=== PATIENT | male | born 1955 | race Caucasian/White ===

== ENCOUNTER 2017-07-23 11:27 | Emergency (ER) | payer OTHER ==
[2015-04-20 11:20] VITALS: BMI 23.3
[~2017-07-23 11:27] MED LIST: PRINIVIL10 MG PO; TENORMIN25 MG PO
[2017-07-23 13:35] LABS: BASOPHILS 0.1 % (0-2); EOSINOPHILS 0 % (0-7); HEMATOCRIT 42.1 % (42.0-54.0); HEMOGLOBIN 14.8 g/dL (13.5-17.5); IMMATURE GRANULOCYTES 0.6 % (0-5); LYMPHOCYTES 3.9 % (15-50); MCH 30.7 pg (26.0-34.0); MCHC 35.2 g/dL (31.0-37.0); MCV 87.3 fL (80.0-100.0); MEAN PLATELET VOLUME 10.6 fL (7.4-10.4); MONOCYTES 6.7 % (2-11); NEUTROPHILS 88.7 % (40-80); PLATELET COUNT 245 10x3/uL (130-400); RBC 4.82 10x6/uL (4.20-6.10); RDW 12.2 % (11.5-14.5); WBC 19.3 10x3/uL (4.8-10.8)
[2017-07-23 13:44] LABS: ALKALINE PHOSPHATASE 98 U/L (46-116); ALT (SGPT) 23 U/L (10-68); BILIRUBIN - TOTAL 0.95 mg/dL (0.2-1.3); CALCIUM 8.5 mg/dL (8.5-10.1); CARBON DIOXIDE 28.9 mmol/L (21.0-32.0); CREATININE - SERUM 0.9 mg/dL (0.6-1.3); GLUCOSE 115 mg/dL (74-106); POTASSIUM - SERUM 4.5 mmol/L (3.5-5.1); PROTEIN - SERUM 6.9 g/dL (6.4-8.2); UREA NITROGEN 10 mg/dL (7-18); eGFR NON AFRICAN AMERICAN 90 mL/min (90-120)
[2017-07-23 13:48] LABS: CALC OSMOLALITY 241 mosm/kg (275-300)
[2017-07-23 13:49] LABS: CHLORIDE - SERUM 84 mmol/L (98-107); SODIUM 120 mmol/L (136-145)
[2017-07-23 14:05] LABS: APPEARANCE CLEAR (CLEAR); BILIRUBIN NEGATIVE (NEGATIVE); COLOR YELLOW (YELLOW); GLUCOSE NEGATIVE (NEGATIVE); KETONE NEGATIVE (NEGATIVE); NITRITE NEGATIVE (NEGATIVE); PROTEIN NEGATIVE (NEGATIVE); UROBILINOGEN NORMAL (NORMAL)
[2017-07-23 14:08] LABS: WHITE CELLS - URINE OCC /hpf (0-5)
[2017-07-23 14:09] LABS: BACTERIA FEW /hpf (NONE SEEN); EPITHELIAL CELLS OCC /hpf (0-5); MUCUS <1+ /lpf (NONE SEEN); RED CELLS - URINE 0-5 /hpf (0-5); SPERMATOZOA 0-5 /hpf (NONE SEEN)
== END 2017-07-23 17:50 | disposition home or self-care (01) ==
LOC: D.ER 11:27
PROVIDERS: Emergency Medicine
DX: R55 Syncope and collapse (principal); I10 Essential (primary) hypertension

== ENCOUNTER → 2017-07-26 08:13 | Outpatient (CLI) | payer OTHER ==
[2015-04-20 11:20] VITALS: BMI 23.3
--- NOTE | ~2017-07-26 | EC ---
PATIENT:MEMO GRAY DATE OF SERVICE: 07/26/17 SEX: M MEDICAL RECORD: [id number] DATE OF : 51 LOCATION:[facility] AGE OF PATIENT: 62 ADMISSION DATE: 07/26/17 REFERRING PHYSICIAN: INTERPRETING PHYSICIAN: ARNOL CARR MD ECHOCARDIOGRAM REPORT ECHO CHARGES 4 ECHO COMPLETE CLINICAL DIAGNOSIS: SYNCOPE ECHOCARDIOGRAPHIC MEASUREMENTS (adult normal given) AC root (d.<3.7cm) 3.1 cm LV Septum d (<1.2 cm> 1.3 cm Valve Excursion 2.1 cm LV Septum (systole) 2.1 cm Left Atria (s.<4.0cm> 3.7 cm LVPW d(<1.2cm) 1.3 cm RV (d.<2.3cm) 3.8 cm LVPW (sytole) 2.0 cm LV diastole(<5.6CM) 5.3 cm MV E-F(>70mm/sec) cm LV systole 2.6 cm LVOT Diameter 1.9 cm MV exc.(>10mm) cm Est.ejection fraction (50-75%) % Pericardial Effusion N DOPPLER: LVIT cm/sec A 72.0 cm/sec E 61.0 cm/sec LA cm/sec RVSP 37.0 mmHg LVOT 100 cm/sec AOP1/2T m/s Asc. Ao 138 cm/sec RVOT 44.0 cm/sec RA cm/sec PA 98.0 cm/sec AV Gradient Peak 7.6 mmHg AV Mean 3.3 mmHg AV Area 2.1 cm MV Gradient Peak 5.2 mmHg MV Mean 1.4 mmHg MV Area cm COMMENTS: Infant Babysitter: Mohsen [employer] Tailings Man: 1 Dr. Carr TAPE# PACS DATE OF SERVICE: 07/26/2017 DATE OF SERVICE: 07/26/2017 ECHOCARDIOGRAM FINDINGS: 1. Left ventricular chamber size is within normal limits. Left ventricular systolic function is normal. Overall ejection fraction estimated at 55% to 60%. 2. Left atrium, right atrium, and right ventricle chamber sizes are within ECHOCARDIOGRAM REPORT [id number] MEMO GRAY normal limits. 3. Valvular structures have normal structure and motion. 4. Doppler interrogation reveals moderate mitral regurgitation, mild tricuspid regurgitation, no other valvular insufficiency or stenosis. Pulmonary systolic pressure is normal estimated at 37 mmHg. 5. No evidence of pericardial effusion or left ventricular thrombus. TRANSINT:[id number] Voice Confirmation ID: [id number] DOCUMENT ID: [id number] ARNOL CARR MD at 1148 CC: [id number] DICTATION DATE: 07/26/17 1638 FILM EXAMINER: 07/26/17 1845 DEP CLI 07/26/17 [place] [id number]
== END | disposition home or self-care (01) ==
LOC: D.US 08:00 → D.ECHO 10:05
DX: R55 Syncope and collapse (principal)

== ENCOUNTER 2020-01-21 06:45 | Day surgery (SDC) | payer MEDICARE, OTHER ==
[~2020-01-21] VITALS: Ht 182.9 cm; Wt 78.2 kg
--- NOTE | ~2020-01-21 | OP ---
PATIENT NAME: MEMO GRAY MEDICAL RECORD: [id number] :51 LOCATION:[facility] ADMISSION DATE: SURGEON: BRENNAN WALTER MD DATE OF OPERATION: 01/21/2020 PREOPERATIVE DIAGNOSES: 1. Dysphagia. 2. Gastroesophageal reflux disease. 3. History of colon polyps. 4. Family history of colon cancer. POSTOPERATIVE DIAGNOSES: 1. Schatzki's ring. 2. LA grade I distal esophagitis. 3. Trivial hiatal hernia. 4. Moderate cardial and fundal gastritis with shallow linear ulcers. 5. Moderate antral and prepyloric gastritis. 6. No evidence of colitis, proctitis or colon polyps. PROCEDURES: 1. Esophagogastroduodenoscopy with antrum and distal esophageal biopsies. 2. Esophageal dilation with mwuugbe-hya-adqrplat balloon to 54-Australian. 3. Total colonoscopy to cecum. SURGEON: Brennan Walter MD SIGNAL TESTER: None. BLOOD LOSS: Minimal. ANESTHESIA: IV sedation. COMPLICATIONS: None. The risks, possible complications and alternatives to the procedure were explained to the patient. He elects to proceed. The discussion specifically included, but was not limited to, bleeding requiring emergency reoperation, infection, endoscopic perforation. ENDOSCOPIC COURSE: The patient was conveyed to endoscopy suite electively on 01/21/2020. IV sedation was induced by the anesthesia staff. A bite block was inserted. A gastroscope was inserted into the mouth. It was advanced easily into the hypopharynx. The esophagus was easily intubated as were the stomach and duodenum. Upon withdrawal, retroflexed and angulus views were obtained. Antral biopsies were obtained. I then withdrew into the cardia of the stomach. I advanced a 54-Australian balloon. I then sequentially dilated the entire length of the esophagus to 54-Australian. I then readvanced the endoscope. Biopsies were obtained at the EG junction as well as 4 quadrant biopsies in the Schatzki's ring. The endoscope was then withdrawn under direct vision. The patient was turned 180 degrees and placed in the Irene position. A digital rectal examination was performed. A colonoscope was inserted through the anus. It was easily advanced to the cecum. I slowly withdrew the endoscope. A combination of normal imaging and narrow band imaging were utilized. A retroflexed view was obtained in the rectum. I then unretroflexed the scope and OPERATIVE REPORT [id number] MEMO GRAY removed it under direct vision. I will see the patient in my office in 2-3 weeks. Appointment for his next endoscopy to take place in 3 years. Due to the gastritis that was present, I have recommended a proton pump inhibitor. The patient is going to try an [id number]-[id number] proton pump inhibitor or he is going to find out what proton pump inhibitors are covered by his insurance and let us know. TRANSINT:[id number] Voice Confirmation ID: [id number] DOCUMENT ID: [id number] BRENNAN WALTER MD CC: [id number] DICTATION DATE: 01/21/20 1444 [employer] APPLICATIONS DEVELOPER: 01/21/20 2315 [facility] 01/21/20 [place] [id number] [place] [id number]
--- NOTE | ~2020-01-21 | HP ---
PATIENT: MEMO GRAY MEDICAL RECORD: [id number] ACCOUNT: [id number] LOCATION:[facility] : 51 ADMISSION DATE: 01/21/20 PCP: CARROLL FERGUSON DO HISTORY AND PHYSICAL EXAMINATION PREOPERATIVE DIAGNOSES: 1. Dysphagia at the level of cricopharyngeus. 2. Personal history of colon polyps. 3. Family history of colon cancer. His mother had colon cancer. 4. Gastroesophageal reflux. HISTORY OF PRESENT ILLNESS: The patient is here for EGD, esophageal dilation and colonoscopy. The patient was seen by me back in July in the office. Back in 2014, the patient underwent EGD and colonoscopy. The colon polyp was noted at 75 cm and was a tubular adenoma. PAST MEDICAL AND SURGICAL HISTORY: Seizures, autoimmune encephalitis, hypertension, gastroesophageal reflux, history of hernia repair. SOCIAL HISTORY: Nonsmoker. HOME MEDICATIONS: Please see the nursing list. ALLERGIES: No known drug allergies. PHYSICAL EXAMINATION: GENERAL: The patient does not appear acutely ill. He does not appear chronically ill. VITAL SIGNS: Reviewed. EARS: External ears appear normal. EYES: Extraocular movements are intact. NECK: Trachea is midline. CHEST: No intercostal retractions. PULMONARY: Nonlabored, no stridor. IMPRESSION: 1. Dysphagia. 2. Gastroesophageal reflux disease. 3. Family history of colon cancer. 4. Personal history of colon polyps. PLAN: EGD, esophageal dilation, colonoscopy. TRANSINT:[id number] Voice Confirmation ID: [id number] DOCUMENT ID: [id number] HISTORY AND PHYSICAL [id number] MEMO GRAY ROBERT MD CC: CARROLL FERGUSON DO [id number] DICTATION DATE: 01/21/20 1230 HEALTH INFORMATICS INSTRUCTOR: 01/21/20 1258 [facility] [address] [place] [id number]
[2020-01-21 07:08] LABS: BASOPHILS 0.7 % (0-2); EOSINOPHILS 4.1 % (0-7); HEMATOCRIT 37.2 % (42.0-54.0); HEMOGLOBIN 12.6 g/dL (13.5-17.5); LYMPHOCYTES 31.2 % (15-50); MCHC 33.9 g/dL (31.0-37.0); MCV 88.6 fL (80.0-100.0); MEAN PLATELET VOLUME 10.8 fL (7.4-10.4); PLATELET COUNT 197 10x3/uL (130-400); RDW 12.8 % (11.5-14.5); WBC 7.3 10x3/uL (4.8-10.8)
[2020-01-21 07:34] LABS: ANION GAP 9.8 mmol/L (8-16); CALCIUM 8.5 mg/dL (8.5-10.1); CARBON DIOXIDE 30.7 mmol/L (21.0-32.0); CREATININE - SERUM 1.1 mg/dL (0.6-1.3); POTASSIUM - SERUM 3.5 mmol/L (3.5-5.1)
[2020-01-21] MEDS ORDERED: COZAAR25 MG PO (08:19)
[2020-01-21] MEDS ORDERED: TENORMIN50 MG PO (08:19)
[2020-01-21] MEDS ORDERED: PROCARDIA XL60 MG PO (08:20)
[2020-01-21] MEDS ORDERED: CENTRUM SILVER (08:21)
[2020-01-21] MEDS ORDERED: BAYER CHEWABLE81 MG PO (08:21)
[2020-01-21] MEDS ORDERED: PAMELOR 25 MG C25 MG PO (08:22)
[2020-01-21 08:32] VITALS: BP 142/77; Ht 182.9 cm; Wt 78.2 kg
--- NOTE | 2020-01-21 14:44 | NUR ---
1416 IV DC'D. CATHETER TIP INTACT. NO BLEEDING AT SITE. BANDAID APPLIED. 1420 REVIEWED DISCHARGE INSTRUCTIONS WITH PT AND HIS . QUESTIONS ANSWERED. BOTH VOICE THEIR UNDERSTANDING OF DISCHARGE INSTRUCTIONS.
== END 2020-01-21 14:31 | disposition home or self-care (01) ==
LOC: D.OPS 06:45
PROVIDERS: Anesthesiology; ATTEND Surgery
DX: R13.10 Dysphagia, unspecified (principal); K21.9 Gastro-esophageal reflux disease without esophagitis; Z86.010 Personal history of colon polyps; Z80.0 Family history of malignant neoplasm of digestive organs; K22.2 Esophageal obstruction; K20.8 Other esophagitis; K44.9 Diaphragmatic hernia without obstruction or gangrene; K29.60 Other gastritis without bleeding